=== PATIENT | male | born 1960 | race African-American/Black ===

== ENCOUNTER 2019-07-30 07:45 | Outpatient (CLI) | payer OTHER ==
--- NOTE | 2019-07-30 09:27 | RAD ---
3 VIEWS LUMBAR SPINE: Date: 07/30/2019 HISTORY: Disability evaluation. FINDINGS: Five lumbar-type vertebral bodies are present with intact pedicles on frontal imaging. Mild disc spac e narrowing and anterior osteophyte formation noted at L5-S1. Multilevel bilateral lower lumbar spine facet hypertrophy, most prominent at L3-4, L4-5, and L5-S1. Anterolisthesis at L4-5 noted measuring 6.0 mm. No acute osseous abnormality. IMPRESSION: Multilevel lower lumbar spine degenerative change. No acute osseous abnormality. POS: [facility]
== END 2019-07-30 07:46 | disposition home or self-care (01) ==
LOC: NAV RAD 07:45
PROVIDERS: ATTEND Family Medicine
DX: M54.5 Low back pain (principal); M47.816 Spondylosis without myelopathy or radiculopathy, lumbar region
CPT/HCPCS: 72100